=== PATIENT | female | born 1995 | race Caucasian/White ===

== ENCOUNTER → 2023-01-06 | Outpatient (CLI) | payer OTHER, SELFPAY | END | disposition home or self-care (01) | LOC: LABSPEC 16:19 | PROVIDERS: PCP Nurse Practitioner Family; Referring Provider Obstetrics & Gynecology; Visit Provider Obstetrics & Gynecology | DX: Z34.90 Encounter for supervision of normal pregnancy, unspecified, unspecified trimester (principal) | CPT/HCPCS: 87086 ==

== ENCOUNTER → 2023-01-28 | Outpatient (CLI) | payer OTHER, SELFPAY ==
[2023-01-28 13:56] LABS: Absolute Lymphocyte Count 2.09 X10^3/uL (0.83-4.51); Absolute Neutrophil Count 9.2 X10^3/uL (2.0-7.7); Basophil# 0.04 X10^3/uL; Basophil% 0.3 % (0-1); Eosinophil# 0.05 X10^3/uL; Eosinophils% 0.4 % (0-5); Hematocrit 37.7 % (37-47); Lymphocyte # 2.09 X10^3/ul (0.83-4.51); Lymphocyte % 17.4 % (19-41); Mean Corp Hgb Conc 34.5 g/dL (32-36); Mean Corpuscular Hgb 32.7 pg (27.0-32.0); Mean Corpuscular Volume 94.7 fL (81-99); Mean Platelet Vol. 8.6 fl (6.2-12.0); Monocyte# 0.61 X10^3/uL; Monocyte% 5.1 % (0-10); NRBC Flagged by Analyzer 0 % (0-5); Neutrophil # 9.23 X10^3/uL (2.7-7.7); Neutrophil % 76.6 % (47-70); Platelet Count 279 K/mm3 (150-450); RBC Distribution Width CV 11.9 % (11.6-14.6); RBC Distribution Width SD 41.4 fl (35.1-43.9); Red Blood Count 3.98 M/mm3 (4.2-5.4)
[2023-01-28 15:13] LABS: HIV - WCH Non-Reactive (Nonreactive); Hepatitis B Surface Antigen Non-Reactive (Nonreactive); Hepatitis C Antibody Non-Reactive (Nonreactive); Rubella IgG Reactive (Nonreactive); Syphilis Antibodies Non-reactive
== END | disposition home or self-care (01) ==
LOC: LAB 13:30
PROVIDERS: Referring Provider Obstetrics & Gynecology; Visit Provider Obstetrics & Gynecology
DX: Z34.90 Encounter for supervision of normal pregnancy, unspecified, unspecified trimester (principal); Z3A.00 Weeks of gestation of pregnancy not specified
CPT/HCPCS: 36415; 85025; 86703; 86762; 86780; 86803; 86850; 86900; 86901; 87340

== ENCOUNTER → 2023-05-19 | Outpatient (CLI) | payer OTHER, SELFPAY ==
[2023-05-19 08:53] LABS: Absolute Lymphocyte Count 1.98 X10^3/uL (0.83-4.51); Absolute Neutrophil Count 9.5 X10^3/uL (2.0-7.7); Basophil# 0.05 X10^3/uL; Basophil% 0.4 % (0-1); Eosinophil# 0.07 X10^3/uL; Eosinophils% 0.6 % (0-5); Hemoglobin 12.3 g/dL (12.0-15.0); Lymphocyte # 1.98 X10^3/ul (0.83-4.51); Lymphocyte % 16.5 % (19-41); Mean Corp Hgb Conc 33.2 g/dL (32-36); Mean Corpuscular Hgb 33.2 pg (27.0-32.0); Mean Corpuscular Volume 99.7 fL (81-99); Mean Platelet Vol. 8.4 fl (6.2-12.0); Monocyte# 0.38 X10^3/uL; Monocyte% 3.2 % (0-10); NRBC Flagged by Analyzer 0 % (0-5); Neutrophil # 9.45 X10^3/uL (2.7-7.7); Neutrophil % 78.9 % (47-70); Platelet Count 287 K/mm3 (150-450); RBC Distribution Width CV 12.2 % (11.6-14.6); RBC Distribution Width SD 44.6 fl (35.1-43.9); Red Blood Count 3.71 M/mm3 (4.2-5.4)
[2023-05-19 08:58] LABS: Glucose Challenge Gest 1H 50g 120 mg/dL (70-140)
[2023-05-19 09:33] LABS: HIV - WCH Non-Reactive (Nonreactive); Syphilis Antibodies Non-reactive
== END | disposition home or self-care (01) ==
PROVIDERS: Referring Provider Registered Nurse; Visit Provider Registered Nurse
DX: Z34.90 Encounter for supervision of normal pregnancy, unspecified, unspecified trimester (principal); Z3A.00 Weeks of gestation of pregnancy not specified
CPT/HCPCS: 36415; 82950; 85025; 86703; 86780

== ENCOUNTER → 2023-07-14 | Outpatient (CLI) | payer OTHER, SELFPAY | END | disposition home or self-care (01) | LOC: LABSPEC 16:39 | PROVIDERS: Referring Provider Obstetrics & Gynecology; Visit Provider Obstetrics & Gynecology | DX: O09.90 Supervision of high risk pregnancy, unspecified, unspecified trimester (principal); Z3A.00 Weeks of gestation of pregnancy not specified | CPT/HCPCS: 87081 ==

== ENCOUNTER → 2023-08-03 | Outpatient (CLI) | payer OTHER, SELFPAY ==
--- NOTE | 2023-08-03 07:58 | US_ITS ---
STUDY: SECOND AND THIRD TRIMESTER OBSTETRICAL ULTRASOUND - LIMITED REASON FOR EXAM: Female, 28 years old growth scan uterine size date discrepancy LMP: October 30, 2022. PRIOR ULTRASOUND: None. TECHNIQUE: Transabdominal TECHNICAL QUALITY: Adequate. FINDINGS: There is a single intrauterine fetus. The fetus is in a cephalic presentation. There is demonstrated cardiac activity with a heart rate of 166 bpm. There is a normal amniotic fluid volume. The largest amniotic fluid pocket measures 3.1 cm x 3.1 cm. The amniotic fluid index (SKIP) is 9.2 cm. The placenta is anterior in location and is not low lying. There are Grade 2 placental changes. The cervix measures 4.1 cm in length. BIOMETRY: BPD: 9.18 cm: 37 weeks, 2 days HC: 33.9 cm: 38 weeks, 6 days AC: 34.2 cm: 38 weeks, 1 days FL: 7.5 cm: 38 weeks, 1 days Age by LMP: 39 weeks, 4 days. JULIANA by LMP: August 06, 2023. age by current US: 38 weeks, 0 days. JULIANA by current US: August 17, 2023. Estimated weight: 3395 grams, +/- 50 grams, 38 percentile. US/OB Limited With Biometrics IMPRESSION: Single live intrauterine gestation with a mean gestational age of 38 weeks. Electronically Signed: Timmy Abad MD at 15:30 EST ,
--- OUTSIDE RECORDS SUMMARY | 2023-08-03 08:17 | XMS RPT_ITS | CCD ---
Author Name Unknown Address [address] [facility] [address] [place] [address] Organization [facility] Care Team Providers Care Dentistry Teacher Name Role Phone DANIELLE ORELLANA Primary Care Physician Unavailable Primary Care Provider Cornell KRAMER, [facility] Primary Care Unavailable BAILEY GUY Attending JUVENTINO Middleton Referring UnavailJUVENTINO Sanchez Referring Unavailab JUVENTINO Wolf Attending Shahab Huynh, [facility] Primary Care Unavailable Allergies Allergy Classification Reported Allergen(s) Allergy Type Date of Onset Reaction(s) Facility (2 sources) Amoxicillin; Translations: [amoxicillin] Drug Allergy Diarrhea (finding) [facility] Work Phone: (2 sources) Penicillin; Translations: [penicillin] Drug Allergy Diarrhea (finding) [facility] Work Phone: Medications Current Medications Medication Drug Class(es) Dates Sig (Normalized) Sig (Original) Ethinyl Estradiol / Levonorgestrel (2 sources) Progestin, Estrogen, Progestin-containin g Intrauterine Device Start: 02-16-2021 take 1 tablet by mouth once daily Sronyx 100 mcg-20 mcg oral tablet tab(s), Oral, qDay, 0 Refill(s) Start Date: 02/16/21 Status: Ordered nitrofurantoin, macrocrystals 100 mg oral capsule (1 source) Nitrofuran Antibacterial Start: 07-01-2021 End: 07-06-2021 Macrobid 100 mg oral capsule Dose : 100 mg = 1 cap(s), Oral, BID, Take with food, X 5 day(s), # 10 cap(s), 0 Refill(s), 07/06/21 7:21:00 EST, Pharmacy: [facility]/pharmacy #[id number], 160, cm, 07/01/21 7:10:00 EST, Height, 65.8, kg, 07/01/21 7:10:00 EST, Dosing Weight Start Date: 07/01/21 Stop Date: 07/06/21 Status: Ordered spironolactone 50 mg oral tablet (2 sources) Aldosterone Antagonist Start: 07-01-2021 spironolactone 50 mg oral tablet 0 Refill(s) Start Date: 07/01/21 Status: Ordered Results Test Name Value Interpretation Reference Range Facil ity Encounters Encounter Date Encounter Type Care Provider Facility Start: 03-24-2023 End: 03-24-2023 ambulatory [facility] Start: 03-10-2023 End: 03-10-2023 ambulatory JUVENTINO SIMMON[facility] Start: 08-04-2021 End: 08-08-2021 Outreach Lab MARCO GANT MANAGER CULTURE-SENIOR SOFTWARE SYSTEMS ENGINEER [facility] Start: 07-01-2021 End: 07-05-2021 Outreach Lab DANIELLE LEMUS APRN-SENIOR SOFTWARE SYSTEMS ENGINEER [facility] Start: 03-16-2020 Patient encounter procedure Celena Hernandez MD Work Phone: [facility] Start: 03-16-2020 Progress Note Celena kaba MD Work Phone: [facility] Procedures Date Procedure Procedure Detail Performing Clinician Start: 06-06-2003 Finger structure (angela dy structure) DANIELLE LEMUS MANAGER CULTURE-SENIOR SOFTWARE SYSTEMS ENGINEER Immunizations Immunization Date Immunization Notes Care Provider Kelsie teague 03-20-2018 influenza virus vacc ine, unspecified formulation DANIELLE LEMUS APRN-SENIOR SOFTWARE SYSTEMS ENGINEER [facility] 08-28-2014 varicella virus vaccine [facility] 08-26-2014 hepatitis A vaccine, pediatric dosage, unspecified formulation DANIELLE LEMUS MANAGER [facility] 08-26-2014 meningococcal polysaccharide (groups A, C, Y and W-135) diphtheria toxoid conjugate vaccine (MCV4P) DANIELLE LEMUS MANAGER [facility] 08-04-2012 hepatitis A vaccine, pediatric dosage, unspecified formulation DANIELLE LEMUS [facility] 08-04-2012 meningococcal polysaccharide (groups A, C, Y and W-135) diphtheria toxoid conjugate vaccine (MCV4P) DANIELLE LEMUS MANAGER [facility] 08-04-2012 varicella virus vaccine JL BREAUX MANAGER [facility] 09-11-2011 tetanus toxoid, redu tracey diphtheria toxoid, and acellular pertussis vaccine, adsorbed DANIELLE LEMUS MANAGER [facility] 06-06-2011 tetanus toxoid, redu tracey diphtheria toxoid, and acellular pertussis vaccine, adsorbed DANIELLE LEMUS MANAGER [facility] 02-27-2002 measles/mumps/rubell a virus vaccine DANIELLE LEMUS MANAGER [facility] 02-27-2002 poliovirus vaccine, inactivated DANIELLE LEMUS MANAGER CULTURE-SENIOR SOFTWARE SYSTEMS ENGINEER [facility] 08-15-2001 haemophilus influenz ae type b conjugate and Hepatitis B vaccine DANIELLE LEMUS MANAGER CULTURE-SENIOR SOFTWARE SYSTEMS ENGINEER [facility] 11-15-2000 haemophilus influenz ae type b vaccine, PRP-OMP conjugate DANIELLE LEMUS MANAGER CULTURE-SENIOR SOFTWARE SYSTEMS ENGINEER [facility] 08-16-2000 haemophilus influenz ae type b conjugate and Hepatitis B vaccine DANIELLE LEMUS MANAGER CULTURE-SENIOR SOFTWARE SYSTEMS ENGINEER [facility] 08-16-2000 poliovirus vaccine, inactivated DANIELLE LEMUS MANAGER CULTURE-SENIOR SOFTWARE SYSTEMS ENGINEER [facility] 05-17-2000 haemophilus influenz ae type b vaccine, PRP-OMP conjugate DANIELLE LEMUS MANAGER CULTURE-SENIOR SOFTWARE SYSTEMS ENGINEER [facility] 05-17-2000 hepatitis B pediatri c vaccine DANIELLE LEMUS MANAGER CULTURE-SENIOR SOFTWARE SYSTEMS ENGINEER [facility] 04-15-1998 haemophilus influenz ae type b vaccine, HbOC conjugate DANIELLE LEMUS MANAGER CULTURE-SENIOR SOFTWARE SYSTEMS ENGINEER [facility] 04-15-1998 measles/mumps/rubell a virus vaccine DANIELLE LEMUS MANAGER CULTURE-SENIOR SOFTWARE SYSTEMS ENGINEER [facility] 04-15-1998 poliovirus vaccine, inactivated DANIELLE LEMUS MANAGER CULTURE-SENIOR SOFTWARE SYSTEMS ENGINEER [facility] 1997 haemophilus influenz ae type b vaccine, HbOC conjugate DANIELLEJULIETH LEMUS MANAGER CULTURE-SENIOR SOFTWARE SYSTEMS ENGINEER [facility] 1997 hepatitis B pediatri c vaccine DANIELLE LEMUS MANAGER CULTURE-SENIOR SOFTWARE SYSTEMS ENGINEER [facility] 1997 poliovirus vaccine, inactivated DANIELLE LEMUS MANAGER CULTURE-SENIOR SOFTWARE SYSTEMS ENGINEER [facility] 1997 haemophilus influenz ae type b vaccine, HbOC conjugate DANIELLE LEMUS MANAGER CULTURE-SENIOR SOFTWARE SYSTEMS ENGINEER [facility] 1997 hepatitis B pediatri c vaccine DANIELLE LEMUS MANAGER CULTURE-SENIOR SOFTWARE SYSTEMS ENGINEER [facility] 1997 poliovirus vaccine, inactivated DANIELLE LEMUS MANAGER CULTURE-SENIOR SOFTWARE SYSTEMS ENGINEER [facility] 1997 hepatitis B pediatri c vaccine DANIELLE LEMUS MANAGER CULTURE-SENIOR SOFTWARE SYSTEMS ENGINEER [facility] Payers Date Payer Category Payer Unknown [id number] 1997 Unknown [id number] Unknown [id number] Social History Date Type Detail Facility Start: 02-16-2021 Never smoked t obacco (finding) [facility] Sex Assigned At [facility] Tobacco smoking status MNIS Tobacco smoking consumption unknown [facility] Start: 1995 Sex Assigned At Not on file [facility] Clinical Note 08-06-2021 Note Date & Type Note Facility 08-06-2021 Note . MICRO - Microbiology PROCEDURE: Urine Culture [*1] SOURCE: Urine, Clean Catch BODY SITE: COLLECTED DATE/TIME: 08/04/2021 14:00 EST RECEIVED DATE/TIME: 08/04/2021 22:10 EST START DATE/TIME: 08/04/2021 22:10 EST FREE TEXT SOURCE: FINAL REPORTS Final Report [] Verified Date/Time/Personnel: 08/06/2021 09:59 EST <10,000 cfu/ml. No Significant growth. Sensitivity not indicated. PRELIMINARY REPORTS Preliminary Report [] Verified Date/Time/Personnel: 08/05/2021 11:40 EST No growth to date Performing Locations *1: This test was performed at: [facility], [address] [place] [address], [address] [place] [address] ([place]) Clinical Note 07-03-2021 Note Date & Type Note Facility 07-03-2021 Note . MICRO - Microbiology PROCEDURE: Urine Culture [*1] SOURCE: Urine, Clean Catch BODY SITE: COLLECTED DATE/TIME: 07/01/2021 07:10 EST RECEIVED DATE/TIME: 07/01/2021 14:43 EST START DATE/TIME: 07/01/2021 14:43 EST FREE TEXT SOURCE: FINAL REPORTS Final Report [] Verified Date/Time/Personnel: 07/03/2021 08:16 EST 10,000 - 50,000 cfu/ml Escherichia coli PRELIMINARY REPORTS Preliminary Report [] Verified Date/Time/Personnel: 07/02/2021 12:56 EST 10,000 - 50,000 cfu/ml Escherichia coli MIRELLA to follow Preliminary Report [] Verified Date/Time/Personnel: 07/02/2021 10:07 EST 10,000 - 50,000 cfu/ml Gram Negative Rods SUSCEPTIBILITY RESULTS Escherichia coli Antibiotic MIRELLA Dilut MIRELLA Inter Ampicillin <=8 Susceptible Ampicillin/ <=4/2 Susceptible Sulbactam Aztreonam <=4 Susceptible Cefazolin <=2 Susceptible Ciprofloxacin <=0.25 Susceptible Ertapenem <=0.5 Susceptible Gentamicin <=2 Susceptible Imipenem <=1 Susceptible Levofloxacin <=0.5 Susceptible Meropenem <=1 Susceptible Nitrofurantoin <=32 Susceptible Trimethoprim/ <=0.5/9.5 Susceptible Sulfa Performing Locations *1: This test was performed at: [facility], [address] [place] [address], [facility] , [facility] ([place]) Evaluation + Plan note 02-16-2021 Laboratory Note Date & Type Note Facility 02-16-2021 Evaluation + Plan note Future Scheduled TestsComplete Blood Count 02/16/21Lipid Profile 02/16/21Complete Metabolic Panel 02/16/21 [facility] History of Present illness Narrative 03-16-2020 Celena Hernandez MD - 03/16/2020 3:01 PM EDT Note Date & Type Note Facility 03-16-2020 History of Present illness Narrative DATE OF SERVICE: 03/16/2020 HISTORY OF PRESENT ILLNESS: A 25-year-old female with chief complaint of concern for possible urinary tract infection in the last 24 hours. Since yesterday, urinary urgency, frequency, and she has had something like this before. There is no burning, but she has had a bladder infection and felt similar. No fever, no nausea, no severe back pain. PAST MEDICAL HISTORY: She denies any medical issues. PAST SURGICAL HISTORY: She has had remote index finger surgery. CURRENT MEDICATIONS: Just on control. ALLERGIES: None. REVIEW OF SYSTEMS: Denies any fever or chills. No chest pain, no shortness of breath. No other associated symptoms. PHYSICAL EXAMINATION: She looks well. Telehealth was done. Video chat revealed a person who was pleasant, non-septic appearing, no respiratory distress. She seems reasonably comfortable. DIAGNOSIS: TELEHEALTH, possible urinary tract infection based on her symptoms. PLAN: I did advise her if no better in 2-3 days, she needs to be seen in person. Keflex 500 b.i.d. x7 days was prescribed to pharmacy. Encouraged plenty of fluids and followup as needed. Zaira Hernandez MD /[id number] SSI File#: [id number] END OF DOCUMENT / CHANGE LOG FOLLOWS Last Edited By Elec. Signed By Celena Hernandez MD #IBRKH Celena Hernandez MD #IBRKH on 03/16/2020 15:39 ET on 03/16/2020 15:39 ET Revision Number - 2 ^^^ Verified/Reviewed by 03/16/20 1539 [facility] PATIENT NAME: LISA CLAIRE [address] [facility] [address] MEDICAL REC #: [id number] [place] [address] [facility] STAT[facility]ARE PHYSICIAN documented in this encounter [facility] Evaluation + Plan note Laboratory Note Date & Type Note Facility Evaluation + Plan note Future Appointments Appointment Date:07/06/2021 07:50:00 AM Scheduled Provider:DANIELLE LEMUS Location:[facility] Appointment Type: Acute Future Scheduled TestsComplete Blood Count 02/16/21Lipid Profile 02/16/21Complete Metabolic Panel 02/16/21 [facility] Hospital course Narrative Note Date & Type Note Facility Hospital course Narrative No data available for this section [facility] Hospital Discharge instructions Note Date & Type Note Facility Hospital Discharge instructions No data available for this section [facility] Summary Purpose Family History No Family History Records FoundNo Family History Records FoundNo Family History Records FoundNo Family History Records Found Advance Directives No Advanced Directives Records FoundNo Advanced Directives Records FoundNo Advanced Directives Records FoundNo Advanced Directives Records Found Additional Source Comments INFORMATION SOURCE (unrecogn ized section and content) DATE CREATED AUTHOR AUTHOR'S ORGANIZ ATION 05/07/2020 [facility] [place] DATE CREATED AUTHOR AUTHOR'S ORGANIZ ATION 08/09/2021 [facility] ([place]) DATE CREATED AUTHOR AUTHOR'S ORGANIZ ATION 03/26/2023 [facility] Source Comments (unrecognize d section and content) In the event this informatio n is protected by the Federal Confidentiality of Alcohol and Drug Abuse Patient Records regulations: The Federal rules restrict any use of the information to criminally investigate or prosecute any alcohol or drug abuse patient.[facility] FOR RECORDS PERTAINING TO PATIENTS WHO ARE OR HAVE BEEN ENROLLED IN A CHEMICAL DEPENDENCY/SUBSTANCEABUSE PROGRAM, SOME INFORMATION MAY BE OMITTED. This clinical summary was aggregated from multiple sources. Caution should be exercised in using it in the provision of clinical care. This summary normalizes information from multiple sources, and as a consequence, information in this document may materially change the coding, format and clinical context of patient data. In addition, data may be omitted in some cases. CLINICAL DECISIONS SHOULD BE BASED ON THE PRIMARY CLINICAL RECORDS. [facility]. provides no warranty or guarantee of the accuracy or completeness of information in this document.
== END | disposition home or self-care (01) ==
LOC: US 07:58
PROVIDERS: Referring Provider Obstetrics & Gynecology; Visit Provider Obstetrics & Gynecology
DX: O26.849 Uterine size-date discrepancy, unspecified trimester (principal); Z3A.00 Weeks of gestation of pregnancy not specified
CPT/HCPCS: 76816

== ENCOUNTER → 2023-08-10 | Outpatient (CLI) | payer OTHER, SELFPAY ==
--- NOTE | 2023-08-10 15:26 | US_ITS ---
STUDY: SECOND AND THIRD TRIMESTER OBSTETRICAL ULTRASOUND - LIMITED REASON FOR EXAM: Female, 28 years old SKIP LMP: 10/30/2022 PRIOR ULTRASOUND: 08/03/2023. TECHNIQUE: Transabdominal TECHNICAL QUALITY: Adequate. FINDINGS: There is a single intrauterine fetus. The fetus is in a cephalic presentation. There is demonstrated cardiac activity with a heart rate of 166 bpm. There is a normal amniotic fluid volume. The largest amniotic fluid pocket measures 3.2 cm. The amniotic fluid index (SKIP) is 9.1 cm. The placenta is anterior in location and is not low lying. There are Grade 3 placental changes. The cervix is not visualized. Age by LMP: 40 weeks, 4 days. JULIANA by LMP: 08/06/2023. US/OB Limited (No Biometrics) IMPRESSION: Single live intrauterine gestation with clinical EGA of 40 weeks 4 days and amniotic fluid index of 9.1. Electronically Signed: Toñito Lindsay MD at 19:57 EST ,
== END | disposition home or self-care (01) ==
LOC: US 15:26
PROVIDERS: Referring Provider Obstetrics & Gynecology; Visit Provider Obstetrics & Gynecology
DX: O26.843 Uterine size-date discrepancy, third trimester (principal); Z3A.00 Weeks of gestation of pregnancy not specified
CPT/HCPCS: 76815

== ENCOUNTER 2023-08-11 05:45 | Inpatient (IN) | payer OTHER, SELFPAY ==
[2023-08-11] VITALS (36 sets, daily range): BP systolic 92–172; BP diastolic 53–76; PULSE 54–105; RESP 16–20; TEMP 36.4–37.2; O2SAT 80–100; BMI 32.8
--- OUTSIDE RECORDS SUMMARY | 2023-08-11 05:53 | XMS RPT_ITS | CCD ---
Author Name Unknown Address [address] [facility] [address] [place] [address] Organization [facility] Care Team Providers Care Chief [employer] Name Role Phone DANIELLE ORELLANA Primary Care Physician Unavailable Primary Care Provider Cornell KRAMER, [facility] Primary Care Unavailable BAILEY GUY Attending JUVENTINO Middleton Referring UnavailJUVENTINO Sanchez Referring Unavailab JUVENTINO Wolf Attending Shahab Huynh, [facility] Primary Care Unavailable Allergies Allergy Classification Reported Allergen(s) Allergy Type Date of Onset Reaction(s) Facility (2 sources) Amoxicillin; Translations: [amoxicillin] Drug Allergy Diarrhea (finding) [facility] Work Phone: (2 sources) Penicillin; Translations: [penicillin] Drug Allergy Diarrhea (finding) [facility] Work Phone: Medications Current Medications Medication Drug [...] cap(s), 0 Refill(s), 07/06/21 7:21:00 EST, Pharmacy: [facility]/pharmacy #[id number], 160, cm, 07/01/21 7:10:00 EST, Height, [...] Provider Facility Start: 03-24-2023 End: 03-24-2023 ambulatory [facility] Start: 03-10-2023 End: 03-10-2023 ambulatory JUVENTINO SIMMONS [facility] Start: 08-04-2021 End: 08-08-2021 Outreach Lab MARCO GANT TELEPHONE OPERATOR-INDUSTRIAL PLANT CUSTODIAN [facility] Start: 07-01-2021 End: 07-05-2021 Outreach Lab DANIELLE LEMUS APRN-INDUSTRIAL PLANT CUSTODIAN [facility] Start: 03-16-2020 Patient encounter procedure Celena Hernandez MD Work Phone: [facility] Start: 03-16-2020 Progress Note Celena kaba MD Work Phone: [facility] H[facility] Procedures Date Procedure Procedure Detail Performing Clinician Start: 06-06-2003 Finger structure (angela dy structure) DANIELLE LEMUS TELEPHONE OPERATOR-INDUSTRIAL PLANT CUSTODIAN Immunizations Immunization Date Immunization Notes Care Provider Kelsie teague 03-20-2018 influenza virus vacc ine, unspecified formulation DANIELLE LEMUS APRN-INDUSTRIAL PLANT CUSTODIAN [facility] 08-28-2014 varicella virus vaccine JL BREAUX [facility]Photos[facility] 08-26-2014 hepatitis A vaccine, pediatric dosage, unspecified formulation DANIELLE LEMUS TELEPHONE OPERATORPhotosonix [facility] 08-26-2014 meningococcal polysaccharide (groups A, C, Y and W-135) diphtheria toxoid conjugate vaccine (MCV4P) DANIELLE LEMUS TELEPHONE OPERATORPhotos[facility] 08-04-2012 hepatitis A vaccine, pediatric dosage, unspecified formulation DANIELLE LEMUS [facility]Photos[facility] 08-04-2012 meningococcal polysaccharide (groups A, C, Y and W-135) diphtheria toxoid conjugate vaccine (MCV4P) DANIELLE LEMUS TELEPHONE OPERATORPhotos[facility] 08-04-2012 varicella virus vaccine JL BREAUX TELEPHONE OPERATORPhotoson[facility] 09-11-2011 tetanus toxoid, redu tracey diphtheria toxoid, and acellular pertussis vaccine, adsorbed DANIELLE LEMUS TELEPHONE OPERATORPhotos[facility] 06-06-2011 tetanus toxoid, redu tracey diphtheria toxoid, and acellular pertussis vaccine, adsorbed DANIELLE LEMUS TELEPHONE OPERATORPhotos[facility] 02-27-2002 measles/mumps/rubell a virus vaccine DANIELLE LEMUS TELEPHONE OPERATORPhotos[facility] 02-27-2002 poliovirus vaccine, inactivated DANIELLE LEMUS TELEPHONE OPERATOR-INDUSTRIAL PLANT CUSTODIAN [facility] 08-15-2001 haemophilus influenz ae type b conjugate and Hepatitis B vaccine DANIELLE LEMUS TELEPHONE OPERATOR-INDUSTRIAL PLANT CUSTODIAN [facility] 11-15-2000 haemophilus influenz ae type b vaccine, PRP-OMP conjugate DANIELLE LEMUS TELEPHONE OPERATOR-INDUSTRIAL PLANT CUSTODIAN [facility] 08-16-2000 haemophilus influenz ae type b conjugate and Hepatitis B vaccine DANIELLE LEMUS TELEPHONE OPERATOR-INDUSTRIAL PLANT CUSTODIAN [facility] 08-16-2000 poliovirus vaccine, inactivated DANIELLE LEMUS TELEPHONE OPERATOR-INDUSTRIAL PLANT CUSTODIAN [facility] 05-17-2000 haemophilus influenz ae type b vaccine, PRP-OMP conjugate DANIELLE LEMUS TELEPHONE OPERATOR-INDUSTRIAL PLANT CUSTODIAN [facility] 05-17-2000 hepatitis B pediatri c vaccine DANIELLE LEMUS TELEPHONE OPERATOR-INDUSTRIAL PLANT CUSTODIAN [facility] 04-15-1998 haemophilus influenz ae type b vaccine, HbOC conjugate DANIELLE LEMUS TELEPHONE OPERATOR-INDUSTRIAL PLANT CUSTODIAN [facility] 04-15-1998 measles/mumps/rubell a virus vaccine DANIELLE LEMUS TELEPHONE OPERATOR-INDUSTRIAL PLANT CUSTODIAN [facility] 04-15-1998 poliovirus vaccine, inactivated DANIELLE LEMUS TELEPHONE OPERATOR-INDUSTRIAL PLANT CUSTODIAN [facility] 1997 haemophilus influenz ae type b vaccine, HbOC conjugate DANIELLEJULIETH LEMUS TELEPHONE OPERATOR-INDUSTRIAL PLANT CUSTODIAN [facility] 1997 hepatitis B pediatri c vaccine DANIELLE LEMUS TELEPHONE OPERATOR-INDUSTRIAL PLANT CUSTODIAN [facility] 1997 poliovirus vaccine, inactivated DANIELLE LEMUS TELEPHONE OPERATOR-INDUSTRIAL PLANT CUSTODIAN [facility] 1997 haemophilus influenz ae type b vaccine, HbOC conjugate DANIELLE LEMUS TELEPHONE OPERATOR-INDUSTRIAL PLANT CUSTODIAN [facility] 1997 hepatitis B pediatri c vaccine DANIELLE LEMUS TELEPHONE OPERATOR-INDUSTRIAL PLANT CUSTODIAN [facility] 1997 poliovirus vaccine, inactivated DANIELLE LEMUS TELEPHONE OPERATOR-INDUSTRIAL PLANT CUSTODIAN [facility] 1997 hepatitis B pediatri c vaccine DANIELLE LEMUS TELEPHONE OPERATOR-INDUSTRIAL PLANT CUSTODIAN [facility] Payers Date Payer Category Payer Unknown [id number] 2.16. [id number] 1997 Unknown [id number] 2.16. [id number] Unknown [id number] Social History Date Type Detail Facility Start: 02-16-2021 Never smoked t obacco (finding) [facility] Sex Assigned At [facility] Tobacco smoking status PAIS Tobacco smoking consumption unknown [facility] Start: 1995 Sex Assigned At Not on file [facility] Clinical Note 08-06-2021 Note Date & Type [...] Locations *1: This test was performed at: [facility], [address] [place] [address], [address] [place] [address] ([place]) Clinical Note 07-03-2021 Note Date & Type [...] Locations *1: This test was performed at: [facility], [address] [place] [address], [facility] , [facility] ([place]) Evaluation + Plan note 02-16-2021 Laboratory Note Date & Type Note Facility 02-16-2021 Evaluation + Plan note Future Scheduled TestsComplete Blood Count 02/16/21Lipid Profile 02/16/21Complete Metabolic Panel 02/16/21 [facility] History of Present illness Narrative 03-16-2020 Celena [...] and followup as needed. Zaira Hernandez MD /[id number] SSI File#: [id number] END OF DOCUMENT / CHANGE LOG FOLLOWS Last Edited By Elec. Signed By Celena Hernandez MD #IBRKH Celena Hernandez MD #IBRKH on 03/16/2020 15:39 ET on 03/16/2020 15:39 ET Revision Number - 2 ^^^ Verified/Reviewed by 03/16/20 1539 BUBBA [facility] PATIENT NAME: LISA CLAIRE [address] [facility] [address] [facility] [address] [place] MEDICAL REC #: [id number] [place] [address] [facility] RE[facility] STATCARE PHYSICIAN documented in this encounter [facility] Evaluation + Plan note Laboratory Note Date & Type Note Facility Evaluation + Plan note Future Appointments Appointment Date:07/06/2021 07:50:00 AM Scheduled Provider:DANIELLE LEMUS Location:[facility] Appointment Type: Acute Future Scheduled TestsComplete Blood Count 02/16/21Lipid Profile 02/16/21Complete Metabolic Panel 02/16/21 [facility] Hospital course Narrative Note Date & Type Note Facility Hospital course Narrative No data available for this section [facility] Hospital Discharge instructions Note Date & Type Note Facility Hospital Discharge instructions No data available for this section [facility] Summary Purpose Family History No Family History Records FoundNo Family History Records FoundNo Family History Records FoundNo Family History Records Found Advance Directives No Advanced Directives Records FoundNo Advanced Directives Records FoundNo Advanced Directives Records FoundNo Advanced Directives Records Found Additional Source Comments INFORMATION SOURCE (unrecogn ized section and content) DATE CREATED AUTHOR AUTHOR'S ORGANIZ ATION 05/07/2020 [facility] [place] DATE CREATED AUTHOR AUTHOR'S ORGANIZ ATION 08/09/2021 [facility] ([place]) DATE CREATED AUTHOR AUTHOR'S ORGANIZ ATION 03/26/2023 [facility] Source Comments (unrecognize d section and content) In the event this informatio n is protected by the Federal Confidentiality of Alcohol and Drug Abuse Patient Records regulations: The Federal rules restrict any use of the information to criminally investigate or prosecute any alcohol or drug abuse patient.[facility] FOR RECORDS PERTAINING TO PATIENTS WHO ARE [...] BE BASED ON THE PRIMARY CLINICAL RECORDS. [facility] [employer] [facility]. provides no warranty or guarantee of the accuracy or completeness of information in this document.
--- OUTSIDE RECORDS SUMMARY | 2023-08-11 05:57 | XMS RPT_ITS | CCD ---
Author Name Unknown Address [address] [facility] [address] [place] [address] Organization [facility] Care Team Providers Care Freight Checker Name Role Phone DANIELLE ORELLANA Primary Care Physician ( [phone] Unavailable Primary Care Provider Cornell KRAMER, [facility] Primary Care Unavailable BAILEY GUY Attending JUVENTINO Middleton Referring UnavailJUVENTINO Sanchez Referring Unavailab JUVENTINO Wolf Attending Shahab Huynh, [facility] Primary Care Unavailable Allergies Allergy Classification Reported Allergen(s) Allergy Type Date of Onset Reaction(s) Facility (2 sources) Amoxicillin; Translations: [amoxicillin] Drug Allergy Diarrhea (finding) [facility] Work Phone: (2 sources) Penicillin; Translations: [penicillin] Drug Allergy Diarrhea (finding) [facility] Work Phone: Medications Current Medications Medication Drug [...] cap(s), 0 Refill(s), 07/06/21 7:21:00 EST, Pharmacy: [facility]/pharmacy #[id number], 160, cm, 07/01/21 7:10:00 EST, [...] Provider Facility Start: 03-24-2023 End: 03-24-2023 ambulatory [facility] Start: 03-10-2023 End: 03-10-2023 ambulatory JUVENTINO SIMMONS [facility] Start: 08-04-2021 End: 08-08-2021 Outreach Lab MARCO GANT DISPLAY ARTIST-PROTECTION CHIEF INDUSTRIAL PLANT [facility] Start: 07-01-2021 End: 07-05-2021 Outreach Lab DANIELLE LEMUS APRN-PROTECTION CHIEF INDUSTRIAL PLANT [facility] Start: 03-16-2020 Patient encounter procedure Celena Hernandez MD Work Phone: [facility] Start: 03-16-2020 Progress Note Celena kaba MD Work Phone: [facility] HOV Procedures Date Procedure Procedure Detail Performing Clinician Start: 06-06-2003 Finger structure (angela dy structure) DANIELLE LEMUS DISPLAY ARTIST-PROTECTION CHIEF [employer] Immunizations Immunization Date Immunization Notes Care Provider Kelsie teague 03-20-2018 influenza virus vacc ine, unspecified formulation DANIELLE LEMUS APRN-PROTECTION CHIEF INDUSTRIAL PLANT [facility] 08-28-2014 varicella virus vaccine JL BREAUX APRNShandong In spur [facility] 08-26-2014 hepatitis A vaccine, pediatric dosage, unspecified formulation DANIELLE LEMUS DISPLAY ARTISTShandong In spur [facility] [facility] 08-26-2014 meningococcal polysaccharide (groups A, C, Y and W-135) diphtheria toxoid conjugate vaccine (MCV4P) DANIELLE LEMUS DISPLAY ARTISTShandong In spur [facility] 08-04-2012 hepatitis A vaccine, pediatric dosage, unspecified formulation DANIELLE LEMUS APRNShandong In spur [place] [facility] 08-04-2012 meningococcal polysaccharide (groups A, C, Y and W-135) diphtheria toxoid conjugate vaccine (MCV4P) DANIELLE LEMUS DISPLAY ARTISTShandong In spur [facility] [facility] 08-04-2012 varicella virus vaccine JL BREAUX DISPLAY ARTISTShandong In spur [facility] [facility] 09-11-2011 tetanus toxoid, redu tracey diphtheria toxoid, and acellular pertussis vaccine, adsorbed DANIELLE LEMUS DISPLAY ARTISTShandong In spur [facility] [facility] 06-06-2011 tetanus toxoid, redu tracey diphtheria toxoid, and acellular pertussis vaccine, adsorbed DANIELLE LEMUS DISPLAY ARTISTShandong In spur [employer] [facility] 02-27-2002 measles/mumps/rubell a virus vaccine DANIELLE LEMUS DISPLAY ARTISTShandong In spur [employer] [facility] 02-27-2002 poliovirus vaccine, inactivated DANIELLE LEMUS DISPLAY ARTIST-PROTECTION CHIEF INDUSTRIAL PLANT [facility] 08-15-2001 haemophilus influenz ae type b conjugate and Hepatitis B vaccine DANIELLE LEMUS DISPLAY ARTIST-PROTECTION CHIEF INDUSTRIAL PLANT [facility] 11-15-2000 haemophilus influenz ae type b vaccine, PRP-OMP conjugate DANIELLE LEMUS DISPLAY ARTIST-PROTECTION CHIEF INDUSTRIAL PLANT [facility] 08-16-2000 haemophilus influenz ae type b conjugate and Hepatitis B vaccine DANIELLE LEMUS DISPLAY ARTIST-PROTECTION CHIEF INDUSTRIAL PLANT [facility] 08-16-2000 poliovirus vaccine, inactivated DANIELLE LEMUS DISPLAY ARTIST-PROTECTION CHIEF INDUSTRIAL PLANT [facility] 05-17-2000 haemophilus influenz ae type b vaccine, PRP-OMP conjugate DANIELLE LEMUS DISPLAY ARTIST-PROTECTION CHIEF INDUSTRIAL PLANT [facility] 05-17-2000 hepatitis B pediatri c vaccine DANIELLE LEMUS DISPLAY ARTIST-PROTECTION CHIEF INDUSTRIAL PLANT [facility] 04-15-1998 haemophilus influenz ae type b vaccine, HbOC conjugate DANIELLE LEMUS DISPLAY ARTIST-PROTECTION CHIEF INDUSTRIAL PLANT [facility] 04-15-1998 measles/mumps/rubell a virus vaccine DANIELLE LEMUS DISPLAY ARTIST-PROTECTION CHIEF INDUSTRIAL PLANT [facility] 04-15-1998 poliovirus vaccine, inactivated DANIELLE LEMUS DISPLAY ARTIST-PROTECTION CHIEF INDUSTRIAL PLANT [facility] 1997 haemophilus influenz ae type b vaccine, HbOC conjugate DANIELLEJULIETH LEMUS DISPLAY ARTIST-PROTECTION CHIEF INDUSTRIAL PLANT [facility] 1997 hepatitis B pediatri c vaccine DANIELLE LEMUS DISPLAY ARTIST-PROTECTION CHIEF INDUSTRIAL PLANT [facility] 1997 poliovirus vaccine, inactivated DANIELLE LEMUS DISPLAY ARTIST-PROTECTION CHIEF INDUSTRIAL PLANT [facility] 1997 haemophilus influenz ae type b vaccine, HbOC conjugate DANIELLE LEMUS DISPLAY ARTIST-PROTECTION CHIEF INDUSTRIAL PLANT [facility] 1997 hepatitis B pediatri c vaccine DANIELLE LEMUS DISPLAY ARTIST-PROTECTION CHIEF INDUSTRIAL PLANT [facility] 1997 poliovirus vaccine, inactivated DANIELLE LEMUS DISPLAY ARTIST-PROTECTION CHIEF INDUSTRIAL PLANT [facility] 1997 hepatitis B pediatri c vaccine DANIELLE LEMUS DISPLAY ARTIST-PROTECTION CHIEF INDUSTRIAL PLANT [facility] Payers Date Payer Category Payer Unknown [id number] 2.16. [id number] 1995 Unknown [id number] [id number]. [id number] Unknown [id number] Social History Date Type Detail Facility Start: 02-16-2021 Never smoked t obacco (finding) [facility] Sex Assigned At [facility] Tobacco smoking status TNIS Tobacco smoking consumption unknown [facility] Start: 1995 Sex Assigned At Not on file [facility] Clinical Note 08-06-2021 Note Date & [...] Locations *1: This test was performed at: [facility], [address] [place] [address], [address] [place] [address] ([place]) Clinical Note 07-03-2021 Note Date & Type [...] Locations *1: This test was performed at: [facility], [address] [place] [address], [facility] , [facility] ([place]) Evaluation + Plan note 02-16-2021 Laboratory Note Date & Type Note Facility 02-16-2021 Evaluation + Plan note Future Scheduled TestsComplete Blood Count 02/16/21Lipid Profile 02/16/21Complete Metabolic Panel 02/16/21 [facility] History of Present illness Narrative 03-16-2020 Celena [...] and followup as needed. Zaira Hernandez MD /[id number] SSI File#: [id number] END OF DOCUMENT / CHANGE LOG FOLLOWS Last Edited By Elec. Signed By Celena Hernandez MD #IBRKH Celena Hernandez MD #IBRKH on 03/16/2020 15:39 ET on 03/16/2020 15:39 ET Revision Number - 2 ^^^ Verified/Reviewed by 03/16/20 1539 BUBBA [facility] PATIENT NAME: LISA CLAIRE [address] [facility] [address] [place] MEDICAL REC #: [id number] [place] [address] [facility] REPORT STATCARE PHYSICIAN documented in this encounter [facility] Evaluation + Plan note Laboratory Note Date & Type Note Facility Evaluation + Plan note Future Appointments Appointment Date:07/06/2021 07:50:00 AM Scheduled Provider:DANIELLE LEMUS Location:[facility] Appointment Type: Acute Future Scheduled TestsComplete Blood Count 02/16/21Lipid Profile 02/16/21Complete Metabolic Panel 02/16/21 [facility] Hospital course Narrative Note Date & Type Note Facility Hospital course Narrative No data available for this section [facility] Hospital Discharge instructions Note Date & Type Note Facility Hospital Discharge instructions No data available for this section [facility] Summary Purpose Family History No Family History Records FoundNo Family History Records FoundNo Family History Records FoundNo Family History Records Found Advance Directives No Advanced Directives Records FoundNo Advanced Directives Records FoundNo Advanced Directives Records FoundNo Advanced Directives Records Found Additional Source Comments INFORMATION SOURCE (unrecogn ized section and content) DATE CREATED AUTHOR AUTHOR'S ORGANIZ ATION 05/07/2020 [facility] Ce nter [place] DATE CREATED AUTHOR AUTHOR'S ORGANIZ ATION 08/09/2021 [facility] ([place]) DATE CREATED AUTHOR AUTHOR'S ORGANIZ ATION 03/26/2023 [facility] Source Comments (unrecognize d section and content) In the event this informatio n is protected by the Federal Confidentiality of Alcohol and Drug Abuse Patient Records regulations: The Federal rules restrict any use of the information to criminally investigate or prosecute any alcohol or drug abuse patient.[facility] FOR RECORDS PERTAINING TO PATIENTS WHO [...] BE BASED ON THE PRIMARY CLINICAL RECORDS. [facility] [employer] [facility]. provides no warranty or guarantee of the accuracy or completeness of information in this document.
[2023-08-11] MEDS: Lactated Ringers 1,000 ML 50 ML IV (06:05)
[2023-08-11 06:21] LABS: Absolute Lymphocyte Count 2.76 X10^3/uL (0.83-4.51); Absolute Neutrophil Count 12.7 X10^3/uL (2.0-7.7); Basophil# 0.07 X10^3/uL; Basophil% 0.4 % (0-1); Eosinophil# 0.06 X10^3/uL; Eosinophils% 0.4 % (0-5); Hematocrit 37.4 % (37-47); Hemoglobin 12.6 g/dL (12.0-15.0); Lymphocyte # 2.76 X10^3/ul (0.83-4.51); Lymphocyte % 16.7 % (19-41); Mean Corp Hgb Conc 33.7 g/dL (32-36); Mean Corpuscular Hgb 32.5 pg (27.0-32.0); Mean Corpuscular Volume 96.4 fL (81-99); Mean Platelet Vol. 9.4 fl (6.2-12.0); Monocyte# 0.87 X10^3/uL; Monocyte% 5.3 % (0-10); NRBC Flagged by Analyzer 0 % (0-5); Neutrophil # 12.68 X10^3/uL (2.7-7.7); Neutrophil % 76.5 % (47-70); Platelet Count 290 K/mm3 (150-450); RBC Distribution Width CV 12.3 % (11.6-14.6); RBC Distribution Width SD 42.6 fl (35.1-43.9); Red Blood Count 3.88 M/mm3 (4.2-5.4); White Blood Count 16.6 K/mm3 (4.4-11.0)
[2023-08-11] MEDS: 0.9% Saline Lock 10 ML Syringe IV ×2 (08:57→15:29)
[2023-08-11 09:06] LABS: Syphilis Antibodies Non-reactive
--- NOTE | 2023-08-11 09:16 | HP.PCM.OB_ITS ---
HPI - General General Date of Admission: 08/11/23 HPI Narrative LISA CLAIRE, is a 28 F who presents with clear SROM since 245 starting to now have regualr ctx Maternal Data Information JULIANA Calculator Estimated Delivery Date Method Current WG Current Estimate 08/06/23 LMP (Certain) 40w 6d Other Estimates 08/07/23 Ultrasound #1 40w 5d PFSH PFSH Home Medications multivit-min no.71-iron fum 28 mg-folate no.1 1 mg-dha 300 mg capsule (PNV- [place]) cap PO 12/31/22 [History Last Taken Unknown] Allergy/AdvReac Type Severity Reaction Status Date / Time amoxicillin Allergy Intermediate Diarrhea Verified 08/11/23 05:53 Penicillins Allergy Intermediate Diarrhea Verified 08/11/23 05:53 Family History Grandmother Breast cancer CVA (cerebral vascular accident) Heart disease Dementia Grandfather Alzheimer's dementia Surgical History (Updated 08/11/23 @ 06:18 by Katey Stafford) History of surgery Social History adopted: No household members: spouse current occupational status: employed current occupation: [employer] current occupational exposures/hazards: No pets and animals: Yes (not managing litterbox) pets and animals: cat(s) and dog(s) sexually active: Yes Smoking Status: Never smoker alcohol intake: current alcohol intake frequency: a few times a month details: Not whiile substance use type: does not use well-balanced diet: daily or most days caffeine: No eating out: 1-3 times/week during the past year weight has: remained stable what type of physical activity do you participate in: none autumn/confucianism: Evangelical seatbelt use: always do you feel safe at home: Yes 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 Elective abortions Hx Para 0 Spontaneous abortions Hx # Term Pregnancies Ectopic pregnancies Hx # Pregnancies Multiple births # of living children Visit Details Expected Delivery Route/Plan Labor Preferences- CB/BF classes: encouraged labor support person: Geremias labor intervention preferences: pain management options preferred: open to epidural but wants to try limited intervention cut cord/dad catch: maybe : yes PP control planned: discussed discussed possible routes of delivery and associated risks: [] special requests: [] Plans Covid status: given Flu vaccine: at work Tdap vaccine: given Rhogam: NA LARC form signed: yes movement and labor precautions reviewed. Problem list reviewed and updated with the most current plan of care details and appropriate orders placed. Relevant counseling for the gestational age provided. Continue routine care and follow up unless otherwise noted in visit notes/problem list details OB Flowsheet Initial Weight: Not Recorded Date -?-?-?-?-?-?-?-?-?-?-?-?- EGA Weight BP Urine Prot -?-?-?-?-?-?-?-?-?-?-?-?- Glucose FHR FuHt Pres Dilation -?-?-?-?-?-?-?-?-?-?-?-?- Effaced St Visit Note 01/06/23 -?-?-?-?-?-?-?-?-?-?-?-?- 9w 5d 158 lb 6 oz 120/78 -?-?-?-?-?-?-?-?-?-?-?-?- -?-?-?-?-?-?-?-?-?-?-?-?- JV- CRL measurin g 27.1 mm consistent with 9 weeks 4 days and also consistent with LMP. wants to return in 2 weeks when we have our new ultrasound up for better pictures. undecided about NIPT and carrier test. 01/28/23 -?-?-?-?-?-?-?-?-?-?-?-?- 12w 6d 158 lb 6 oz 118/74 Nega tive -?-?-?-?-?-?-?-?-?-?-?-?- Negative 150 -?-?-?-?-?-?-?-?-?-?-?-?- JV- pt has decid ed to not do the NIPT. no complaints 02/25/23 -?-?-?-?-?-?-?-?-?-?-?-?- 16w 6d 158 lb 112/70 -?-?-?-?-?-?-?-?-?-?-?-?- 150 -?-?-?-?-?-?-?-?-?-?-?-?- KW-no vb/ctx. US with MFM. AFP offered and declined at this time. 03/24/23 -?-?-?-?-?-?-?-?-?-?-?-?- 20w 5d 165 lb 2 oz 113/75 Nega tive -?-?-?-?-?-?-?-?-?-?-?-?- Negative 155 -?-?-?-?-?-?-?-?-?-?-?-?- KW-no vb/ctx. + flutters. follow up US today. KW-no vb/ctx. + flutters. fo llow up US today. Having a GIRL! 04/22/23 -?-?-?-?-?-?-?-?-?-?-?-?- 24w 6d 168 lb 8 oz 125/73 Nega tive -?-?-?-?-?-?-?-?-?-?-?-?- Negative 150 23.5 -?-?-?-?-?-?-?-?-?-?-?-?- LC- no vb/ctx/lo f. +flutters. 28 week labs ordered.no concerns. LC- no vb/ctx/lof. +flutters . 28 week labs ordered.no concerns. traveling [place]- precautions provided. 05/19/23 -?-?-?-?-?-?-?-?-?-?-?-?- 28w 5d 173 lb 8 oz 103/67 Nega tive -?-?-?-?-?-?-?-?-?-?-?-?- Negative 146 28 -?-?-?-?-?-?-?-?-?-?-?-?- -No VB, LOF. G ood FM. Nl 28 wk labs. [facility] ([place]) tdap. 06/02/23 -?-?-?-?-?-?-?-?-?-?-?-?- 30w 5d 171 lb 6 oz 105/70 Nega tive -?-?-?-?-?-?-?-?-?-?-?-?- Negative 140 30 -?-?-?-?-?-?-?-?-?-?-?-?- SM- no vb lof go od fm no regular ctx 06/16/23 -?-?-?-?-?-?-?-?-?-?-?-?- 32w 5d 174 lb 4 oz 107/71 Nega tive -?-?-?-?-?-?-?-?-?-?-?-?- Negative 140 32 -?-?-?-?-?-?-?-?-?-?-?-?- SM- no vb lof go od fm no regular ctx 06/29/23 -?-?-?-?-?-?-?-?-?-?-?-?- 34w 4d 178 lb 2 oz 112/70 Nega tive -?-?-?-?-?-?-?-?-?-?-?-?- Negative 155 33 Cephalic -?-?-?-?-?-?-?-?-?-?-?-?- JV- no lof, vagi nal bleeding, or dec fm. ultrasound. going for a wedding in [place]. 07/14/23 -?-?-?-?-?-?-?-?-?-?-?-?- 36w 5d 180 lb 96/64 Negative -?-?-?-?-?-?-?-?-?-?-?-?- Negative 145 36 Cephalic 0 -?-?-?-?-?-?-?-?-?-?-?-?- Sm- no vb lof go od fm no regular ctx gbs done 07/19/23 -?-?-?-?-?-?-?-?-?-?-?-?- 37w 3d 180 lb 4 oz 100/68 Nega tive -?-?-?-?-?-?-?-?-?-?-?-?- Negative 150 36 Cephalic -?-?-?-?-?-?-?-?-?-?-?-?- KW- no vb/lof/ct x. good fm. GBS neg. declines SVE. Labor precautions. 07/29/23 -?-?-?-?-?-?-?-?-?-?-?-?- 38w 6d 180 lb 6 oz 112/75 Nega tive -?-?-?-?-?-?-?-?-?-?-?-?- Negative 144 38.5 Cephalic 1 -?-?-?-?-?-?-?-?-?-?-?-?- 60 -2 JV- pt exp erienced migraine with aura this week. No epigastric pain or persistent headache 08/02/23 -?-?-?-?-?-?-?-?-?-?-?-?- 39w 3d 181 lb 104/76 Negative -?-?-?-?-?-?-?-?-?-?-?-?- Negative 135 36 Cephalic 1 -?-?-?-?-?-?-?-?-?-?-?-?- SM- no vb lof go od fm no regular ctx growth US NST FHR Rate Baby A Baseline: 140 Variability:: Moderate Accelerations:: 15 x 15 Decelerations:: None NST Reactive:: Yes FHR Category:: Category I Uterine Activity:: q3-5 ROS Constitutional Constitutional: Reports systems reviewed and no addt'l complaints, except as documented ENT HEENT: Reports systems reviewed and no addt'l complaints, except as documented Cardiovascular Cardiovascular: Reports systems reviewed and no addt'l complaints, except as documented Respiratory/Chest Respiratory/Chest: Reports systems reviewed and no addt'l complaints, except as documented Gastrointestinal Gastrointestinal: Reports systems reviewed and no addt'l complaints, except as documented and nausea; Denies abdominal pain Genitourinary Genitourinary: Reports systems reviewed and no addt'l complaints, except as documented, contractions Details: present and frequency (regular ) and movement Details: present Musculoskeletal Musculoskeletal: Reports systems reviewed and no addt'l complaints, except as documented Integumentary Integumentary: Reports as per HPI Neurologic Neurologic: Reports systems reviewed and no addt'l complaints, except as documented Endocrine Endocrinology: Reports systems reviewed and no addt'l complaints, except as documented Vital Signs Vital Signs Vital Signs: 08/11/23 05:32 08/11/23 05:32 08/11/23 05:32 Temperature Temperature Source Pulse Rate 89 Respiratory Rate Blood Pressure 127/75 H BP Systolic 127 BP Diastolic 75 Pulse Ox 98 08/11/23 05:32 08/11/23 05:32 08/11/23 05:32 Temperature Temperature Source Temporal Pulse Rate Respiratory Rate 16 Blood Pressure BP Systolic BP Diastolic Pulse Ox 98 08/11/23 05:32 08/11/23 06:42 08/11/23 06:42 Temperature 98.0 F Temperature Source Pulse Rate 80 Respiratory Rate Blood Pressure 108/70 BP Systolic 108 BP Diastolic 70 Pulse Ox 08/11/23 06:42 08/11/23 06:42 08/11/23 06:42 Temperature 98.0 F Temperature Source Temporal Pulse Rate Respiratory Rate 16 Blood Pressure BP Systolic BP Diastolic Pulse Ox 08/11/23 07:17 08/11/23 07:17 08/11/23 07:17 Temperature 98.1 F Temperature Source Temporal Pulse Rate Respiratory Rate 18 Blood Pressure BP Systolic BP Diastolic Pulse Ox 08/11/23 07:25 08/11/23 07:25 Temperature Temperature Source Pulse Rate 77 Respiratory Rate Blood Pressure 111/62 BP Systolic 111 BP Diastolic 62 Pulse Ox Weight Weight: 185 lb 6.4 oz Body Mass Index (BMI) 32.8 Physical Exam Const alert, oriented x3 and healthy appearing Constitutional Narrative: uncomfortable with contractions HEENT normocephalic and moist oral mucous membranes Head and Scalp: atraumatic Neck full ROM, no lymphadenopathy, supple and thyroid normal General: trachea midline Thyroid: thyroid normal Lymph Lymphatic: no lymphadenopathy noted Chest inspection of chest normal Resp normal respiratory effort Cardio regular rate GI normal to inspection, nondistended, normoactive bowel sounds, soft to palpation and non-tender Inspection: gravid external exam normal Bimanual Exam - Vag & Uterus: uterus non-tender Manual OB Exam: estimated gestational size appropriate, presentation cephalic, dilated, effaced and station Extremity normal to inspection General Extremity: Negative for edema Skin no rashes or lesions noted Neuro deep tendon reflexes 2+ bilaterally Motor Exam: strength 5/5 throughout and clonus absent Psych mental status grossly normal Labs Labs Labs: Blood Type O POSITIVE Antibody Screen NEGATIVE Hct 37.4 % (37-47) Hgb 12.6 g/dL (12.0-15.0) Pap Smear Negative Obstetrics Ultrasound Syphilis Total Ab Non-reactive Rubella IgG Antibody Reactive (Nonreactive) Hep Bs Antigen Non-Reactive (Nonreactive) Hepatitis C Antibody Non-Reactive (Nonreactive) HIV 1&2 Antibody Non-Reactive (Nonreactive) Glucose 1 Hr 50 gm 120 mg/dL (70-140) Assessment & Plan (1) Supervision of high-risk : QUALIFIERS: Trimester: third trimester Qualified Code(s): O09.93 - Supervision of high risk , unspecified, third trimester COMMENT: PRR JULIANA 08/06/23 girl Geremias (2) : QUALIFIERS: Weeks of gestation: 39 weeks Qualified Code(s): Z3A.39 - 39 weeks gestation of COMMENT: GBS Negative, declined ntd screen, genetic & carrier testing, normal anatomy (3) Asthma: QUALIFIERS: Asthma severity: unspecified severity Asthma persistence: unspecified Asthma complication type: unspecified Qualified Code(s): J45.909 - Unspecified asthma, uncomplicated COMMENT: exercise induced (4) Migraine with aura: (5) SROM (spontaneous rupture of membranes): PLAN: Plan Patient presents IAL, plan expectant management for , pitocin PRN if needed. Pain management: minimal intervention preferred. GBS neg. Management of any complications: none I have reviewed the [facility] and made any clinically relevant updates.
[2023-08-11] MEDS: Ondansetron 4 MG/2 ML Vial IV ×3 (15:29→23:45)
--- NOTE | 2023-08-11 18:01 | PCM.PN.BLA ---
Progress Note 5 cm, will get epidural, and then expectant management. recheck in several hours
[2023-08-11] MEDS: LACTATED RINGERS 500 ML 999 ML IV ×2 (18:05→23:02)
[2023-08-11] MEDS: fentaNYL-bupivacaine (epidural) 100 ML BAG EPIDURAL (19:16)
[2023-08-11] MEDS: Oxytocin 15 Units/NS 250ml 15 UNITS/250 ML IV.SOLN 2 UNITS IV (21:37)
[2023-08-11] MEDS: Lactated Ringers 1,000 ML 200 ML IV (22:04)
[2023-08-11] MEDS: Mag Hydrox/Al Hydrox/Simeth 30 ML UDC PO (23:59)
[2023-08-12] VITALS (26 sets, daily range): BP systolic 95–165; BP diastolic 51–82; PULSE 73–203; RESP 16–20; TEMP 36.6–37.6; O2SAT 79–99
[2023-08-12] MEDS: fentaNYL-bupivacaine (epidural) 100 ML BAG EPIDURAL (00:51)
--- NOTE | 2023-08-12 02:15 | OP.PCM_ITS ---
Assessment & Plan (1) SROM (spontaneous rupture of membranes): (2) Asthma: QUALIFIERS: Asthma complication type: unspecified Asthma persistence: unspecified Asthma severity: unspecified severity Qualified Code(s): J45.909 - Unspecified asthma, uncomplicated COMMENT: exercise induced (3) Supervision of high-risk : QUALIFIERS: Trimester: third trimester Qualified Code(s): O09.93 - Supervision of high risk , unspecified, third trimester COMMENT: PRR JULIANA 08/06/23 girl Geremias (4) : QUALIFIERS: Weeks of gestation: 39 weeks Qualified Code(s): Z3A.39 - 39 weeks gestation of COMMENT: GBS Negative, declined ntd screen, genetic & carrier testing, normal anatomy (5) Vaginal delivery: COMMENT: SM Madelyn 40 SROM Maternal Data Information JULIANA Calculator Estimated Delivery Date Method Current WG Current Estimate 08/06/23 LMP (Certain) 40w 6d Other Estimates 08/07/23 Ultrasound #1 40w 5d Vaginal Delivery Operative Information Date of Procedure: 08/12/23 Pre-Operative Diagnosis: see a/p diagnoses Post-Operative Diagnosis: same Surgery / Procedure Performed: Spontaneous Vaginal Delivery Type of Anesthesia: Epidural Special Medications: none Estimated Blood Loss: 200 Fluids Replaced: crystalloid Findings Description of Procedure: Patient began pushing and delivered the head in the FADY presentation. The head was delivered atraumatically. The anterior and posterior shoulders delivered without complication followed by the rest of the and the was placed on the maternal abdomen. Delayed cord clamping was employed for approximately 60 seconds. Cord was clamped and cut and gentle traction was applied to the cord and the placenta delivered spontaneously immediately following it was noted to be intact with three-vessel cord. The perineum and vagina were inspected and noted to have no laceration. EBL was 200 cc. Patient and tolerated delivery well. Amniotic Fluid Description: Thick meconium Placental Delivery Description: Spontaneous Placenta Disposition: [facility] Cord Vessel Description: 3 Vessels Cord Entanglement: None Delayed Cord Clamping: Yes Post Vaginal Delivery Medications Given After Delivery: IV Pitocin Episiotomy Description: None Complication Complications: None Procedures Urinary/Genital [id number]: [id number] Vaginal Delivery [facility]
--- NOTE | 2023-08-12 02:16 | DCINST_ITS ---
Discharge Instructions Diet Discharge Diet: No restrictions Activity Discharge Activity: Return to Normal Activity, May Not Drive (while taking narcotic pain medications.) and May Shower May resume sexual activity in: 4-6 weeks Dressing / Incision Call your doctor if your incision/area has: Continuous Slow Oozing, Sudden Increased Bleeding, Increased Pain/ Swelling, Increased Redness and Foul Smelling Discharge Follow Up Care Please Follow Up With: Silvina Beverly MD When: Call [phone] to make an appointment with your doctor in 6 weeks. If you had elevated blood pressure or 4th degree laceration, you will need to be seen in 2 weeks. Test Results: Test results from this visit will be discussed in further detail at your follow- up appointment, if applicable. Discharge Plan Admission Admit Date/Time: 08/11/23 05:45 Attending Provider: Silvina Beverly Primary Care Provider: Care Physician,Jeanne Primary Discharge Orders/Prescriptions Prescriptions: No Action PNV-Burdett 28-1-300 mg capsule PO Referrals / Follow Up: Care Physician,No Primary [Primary Care Provider] - Disposition Disposition (needs filled in before D/C Order can be placed): Home, Self Care
[2023-08-12] MEDS: Oxytocin 15 Units/NS 250ml 15 UNITS/250 ML IV.SOLN 83 UNITS IV (03:27)
[2023-08-12] MEDS: 0.9% Saline Lock 10 ML Syringe IV (06:38)
[2023-08-12] MEDS: Naproxen 500 MG Tablet PO ×2 (15:26→23:58)
[2023-08-13 02:00] VITALS: BP 107/67; PULSE 69; RESP 14; TEMP 36.2; O2SAT 98
[2023-08-13 02:22] VITALS: BP 107/67; PULSE 69
--- NOTE | 2023-08-13 08:06 | PCM.PN.OB ---
Subjective Subjective Patient doing well without complaints. Tolerating PO. Ambulating and voiding without difficulty. feeding well. Denies chest pain, shortness of breath, calf pain/swelling, fevers, chills, lightheadedness. Objective Data Objective Data Vital Signs: Vital Signs Temp Pulse Resp BP Pulse Ox O2 Del Method 97.1 F L 69 14 107/67 98 Room Air 08/13/23 02:00 08/13/23 02:22 08/13/23 02:00 08/13/23 02:22 08/13/23 02:00 08/13/23 02:00 Oxygen Delivery Method Room Air Weight: 185 lb 6.4 oz Body Mass Index (BMI) 32.8 Intake & Output: Intake and Output for Last 24 Hours 08/11/23 08/12/23 08/13/23 23:59 23:59 23:59 Intake Total 2082.49 / 2082.49 1123.33 / 1123.33 Output Total 2450 / 2450 2200 / 2200 Balance -367.51 / -367.51 -1076.67 / -1076.67 Lab / Micro Data 08/11/23 06:05 Micro: Microbiology 08/11/23 06:05 Urine, Clean Catch Chlamydia trachomatis (PCR) - Final 08/11/23 06:05 Urine, Clean Catch Neisseria gonorrhoeae (PCR) - Final ROS Constitutional Constitutional: Reports systems reviewed and no addt'l complaints, except as documented Cardiovascular Cardiovascular: Reports systems reviewed and no addt'l complaints, except as documented Respiratory/Chest Respiratory/Chest: Reports systems reviewed and no addt'l complaints, except as documented Gastrointestinal Gastrointestinal: Reports systems reviewed and no addt'l complaints, except as documented Physical Exam Const alert, oriented x3 and no apparent distress HEENT Head and Scalp: atraumatic Resp normal respiratory effort GI soft to palpation and non-tender Bimanual Exam - Vag & Uterus: uterus non-tender Uterus Palpation: uterus fundus firm (below Umbilicus) Assessment & Plan (1) Vaginal delivery: COMMENT: GASTON Joshi 40 SROM PLAN: Plan s/p PPD # 1 1. routine post delivery care 2. breast feeding- support given 3. rh positive 4. rubella immune
[2023-08-13] MEDS: Naproxen 500 MG Tablet PO (08:44)
[2023-08-13 08:48] VITALS: BP 92/55; PULSE 71; RESP 16; TEMP 36.7
[2023-08-13 08:50] VITALS: BP 92/55; PULSE 71
== END 2023-08-13 12:26 | disposition home or self-care (01) | DRG 807 ==
LOC: WPOUT 05:49 → WP 05:49
PROVIDERS: Obstetrics & Gynecology; Admitting Provider Obstetrics & Gynecology; Visit Provider Obstetrics & Gynecology
DX: O99.52 Diseases of the respiratory system complicating childbirth (principal); Z37.0 Single live birth; J45.990 Exercise induced bronchospasm; O77.0 Labor and delivery complicated by meconium in amniotic fluid; Z3A.39 39 weeks gestation of pregnancy
CPT/HCPCS: 59025; 59050; 76815; 85025; 86780; 86850; 86900; 86901; 87491; 87591; 99221; J7120; A4216; G0378; J2405

== ENCOUNTER → 2023-09-19 | Outpatient (CLI) | payer OTHER, SELFPAY ==
[2023-09-21 19:46] LABS: HPV Reflexed? NOT INDICATED
== END | disposition home or self-care (01) ==
LOC: LABSPEC 11:48
PROVIDERS: Referring Provider Nurse Practitioner Women's Health; Visit Provider Nurse Practitioner Women's Health
DX: Z12.4 Encounter for screening for malignant neoplasm of cervix (principal)
CPT/HCPCS: 88175; G0145

== ENCOUNTER → 2025-04-15 | Outpatient (CLI) | payer OTHER, SELFPAY ==
[2025-04-18 21:07] LABS: Chlamydia By Nucleic Acid AMP Negative (Negative); Gonococcus By Nucleic Acid AMP Negative (Negative)
== END | disposition home or self-care (01) ==
LOC: BWCLAB 16:28
PROVIDERS: Visit Provider Obstetrics & Gynecology
DX: Z34.90 Encounter for supervision of normal pregnancy, unspecified, unspecified trimester (principal); Z12.4 Encounter for screening for malignant neoplasm of cervix
CPT/HCPCS: 87086; 87088; 87491; 87591; 88175; G0145

== ENCOUNTER → 2025-05-01 | Outpatient (CLI) | payer OTHER, SELFPAY ==
[2025-05-01 15:20] LABS: Hematocrit 39.9 % (37-47); Hemoglobin 13.5 g/dL (12.0-15.0); Immature Granulocytes Count 0.070 X10^3/uL (0.0-0.0); Mean Corp Hgb Conc 33.8 g/dL (32-36); Mean Corpuscular Volume 93.7 fL (81-99); Mean Platelet Vol. 8.9 fl (6.2-12.0); NRBC Flagged by Analyzer 0 % (0-5); Platelet Count 313 K/mm3 (150-450); RBC Distribution Width CV 12.3 % (11.6-14.6); RBC Distribution Width SD 42.3 fl (35.1-43.9); Red Blood Count 4.26 M/mm3 (4.2-5.4); White Blood Count 12.4 K/mm3 (4.4-11.0)
[2025-05-01 16:05] LABS: HIV Nonreactive (Nonreactive); Hepatitis B Surface Antigen Nonreactive (Nonreactive); Hepatitis C Antibody Nonreactive (Nonreactive); Syphilis Antibodies Nonreactive (Nonreactive)
== END | disposition home or self-care (01) ==
LOC: LAB 14:21
PROVIDERS: Referring Provider Obstetrics & Gynecology; Visit Provider Obstetrics & Gynecology
DX: Z34.90 Encounter for supervision of normal pregnancy, unspecified, unspecified trimester (principal)
CPT/HCPCS: 36415; 85025; 86703; 86762; 86780; 86803; 86850; 86900; 86901; 87340